=== PATIENT | female | born 1945 | race Caucasian/White ===

== ENCOUNTER 2018-02-03 23:24 | Emergency (ER) | payer MEDICARE, BC ==
[2018-02-04] MEDS ORDERED: Ondansetron 4 MG/2 ML SDV IVPUSH ONE (00:07)
--- NOTE | 2018-02-04 00:13 | EDM.PDOC ---
ED HPI GENERAL MEDICAL PROBLEM - General Chief Complaint: Gastrointestinal Problem Stated Complaint: ILLNESS Time Seen by Provider: 02/04/18 00:07 Source of Information: Reports: Patient History Limitations: Reports: No Limitations - History of Present Illness INITIAL COMMENTS - FREE TEXT/NARRATIVE: pt arrived after getting sweaty and feeling like she was going to pass out. She has vomited 5-6 times nd had at least that many diarrhea stools. Onset: Today Duration: Hour(s):, Waxing/Waning Location: Reports: Abdomen Associated Symptoms: Reports: Nausea/Vomiting, Weakness, Other (pt felt like she was going to pass out. ) abd pain Pain Score (Numeric/FACES): 2 - Related Data Allergies Allergy/AdvReac Type Severity Reaction Status Date / Time No Known Allergies Allergy Verified 02/03/18 23:43 Home Meds: Home Meds NK [No Known Home Meds] 02/03/18 [History] Past Medical History Gastrointestinal History: Reports: GERD [employer] History: Reports: Spontaneous Musculoskeletal History: Reports: Fracture - Past Surgical History HEENT Surgical History: Reports: Other (See Below) Other HEENT Surgeries/Procedures: mastoid operation as a child Social & Family History - Tobacco Use Smoking Status *Q: Never Smoker - Caffeine Use Caffeine Use: Reports: Coffee - Alcohol Use Days Per Week of Alcohol Use: 2 Number of Drinks Per Day: 3 Total Drinks Per Week: 6 - Recreational Drug Use Recreational Drug Use: No ED ROS GENERAL - Review of Systems Review Of Systems: See Below Constitutional: Reports: Chills HEENT: Reports: No Symptoms Respiratory: Reports: No Symptoms Cardiovascular: Reports: No Symptoms Endocrine: Reports: No Symptoms GI/Abdominal: Reports: Diarrhea, Nausea, Vomiting, Other ( crampy abdomanal pain. ) : Reports: No Symptoms Musculoskeletal: Reports: No Symptoms Skin: Reports: No Symptoms ED EXAM, GI/ABD - Physical Exam Exam: See Below Text/Narrative:: pt arrived with a history of having a burger last nite. She got up this am feeling ok and had a roll and coffee. She then became very ill about 1 pm today. She has been vomiting and having diarrhea since that time. Exam Limited By: No Limitations General Appearance: Alert, Mild Distress Ears: Normal TMs Nose: Normal Inspection Throat/Mouth: Normal Inspection Head: Atraumatic Neck: Normal Inspection Respiratory/Chest: No Respiratory Distress Cardiovascular: Regular Rate, Rhythm GI/Abdominal Exam: Soft, Other (mild tenderness present, she is passing alot of gas when she has the loose stool. ) (Female) Exam: Deferred Rectal (Female) Exam: Deferred Back Exam: Normal Inspection Extremities: Normal Inspection Neurological: Alert, Oriented, Normal Cognition Course - Vital Signs Last Recorded V/S: Last Vital Signs Temp 36.5 C 02/03/18 23:47 Pulse 83 02/03/18 23:47 Resp 18 02/03/18 23:47 BP 143/73 H 02/03/18 23:47 Pulse Ox 95 02/03/18 23:47 - Orders/Labs/Meds Labs: Laboratory Tests 02/03/18 02/03/18 02/04/18 Range/Units 00:06 00:06 00:34 WBC 11.0 (4.5-11.0) K/uL RBC 5.25 (3.30-5.50) M/uL Hgb 15.8 H (12.0-15.0) g/dL Hct 46.4 (36.0-48.0) % MCV 88 (80-98) fL MCH 30 (27-31) pg MCHC 34 (32-36) % Plt Count 288 (150-400) K/uL Neut % (Auto) 89 H (36-66) % Lymph % (Auto) 4 L (24-44) % [place] % (Auto) 7 H (2-6) % Eos % (Auto) 0 L (2-4) % Baso % (Auto) 0 (0-1) % Sodium 138 L (140-148) mmol/L Potassium 3.5 L (3.6-5.2) mmol/L Chloride 102 (100-108) mmol/L Carbon Dioxide 23 (21-32) mmol/L Anion Gap 16.5 H (5.0-14.0) mmol/L BUN 19 H (7-18) mg/dL Creatinine 0.9 (0.6-1.0) mg/dL Est Cr Clr Drug Dosing 46.00 mL/min Estimated GFR (MDRD) > 60 (>60) Glucose 146 H (74-106) mg/dL Calcium 8.4 L (8.5-10.1) mg/dL Total Bilirubin 0.5 (0.2-1.0) mg/dL AST 15 (15-37) U/L ALT 25 (12-78) U/L Alkaline Phosphatase 104 (46-116) U/L Total Protein 7.1 (6.4-8.2) g/dL Albumin 3.5 (3.4-5.0) g/dL Globulin 3.6 H (2.3-3.5) g/dL Albumin/Globulin Ratio 1.0 L (1.2-2.2) Urine Color Yellow Urine Appearance Slightly cloudy Urine pH 5.0 (4.5-8.0) Ur Specific [place] 1.030 (1.008-1.030) Urine Protein Negative (NEGATIVE) mg/dL Urine Glucose (UA) Normal (NEGATIVE) mg/dL Urine Ketones Negative (NEGATIVE) mg/dL Urine Occult Blood Moderate (NEGATIVE) Urine Nitrite Negative (NEGATIVE) Urine Bilirubin Small (NEGATIVE) Urine Urobilinogen Normal (NORMAL) mg/dL Ur Leukocyte Esterase Negative (NEGATIVE) Urine RBC 5-10 H (0-5) Urine WBC 0-5 (0-5) Ur Epithelial Cells Moderate Amorphous Sediment Not seen Urine Bacteria Not seen Urine Mucus Many Meds: Medications Discontinued Medications Generic Name Dose Route Start Last Admin Trade Name Freq PRN Reason Stop Dose Admin Sodium Chloride 1,000 mls @ 999 mls/hr 02/04/18 00:15 02/04/18 00:19 Normal Saline IV 999 mls/hr ASDIRECTED MIYA Administration Loperamide HCl 2 mg 02/04/18 01:03 02/04/18 01:09 Imodium PO 02/04/18 01:04 2 mg ONETIME ONE Administration Ondansetron HCl 4 mg 02/04/18 00:07 02/04/18 00:24 Zofran IVPUSH 02/04/18 00:08 4 mg ONETIME ONE Administration - Re-Assessments/Exams Free Text/Narrative Re-Assessment/Exam: 02/04/18 01:02 pt was dehydrated. She was given a liter of fluid and zoforan and she is feeling better. She is no longer hving cramping. Departure - Departure Time of Disposition: 01:30 Disposition: Home, Self-Care 01 Condition: Fair Clinical Impression: Dehydration, Flu syndrome - Discharge Information Instructions: Nausea and Vomiting, Adult, [id number], Dehydration, Adult, [id number] Referrals: PCP,None [Primary Care Provider] - Forms: ED Department Discharge Care Plan Goals: clear liquid diet for the nxt few hours, zoforan 4mg subling prn. rtc if problems.
[2018-02-04] MEDS ORDERED: Sodium Chloride 0.9% 1,000 ML IV SCH (00:15)
[2018-02-04] MEDS ORDERED: Loperamide 2 MG Cap PO ONE (01:03)
== END 2018-02-04 01:27 | disposition home or self-care (01) ==
LOC: JP.ED 23:24
DX: E86.0 Dehydration (principal); J11.1 Influenza due to unidentified influenza virus with other respiratory manifestations
CPT/HCPCS: 36415; 80053; 81001; 85025; 96361; 96374; 99284; A9270; J2405; J7040; 99283